=== PATIENT | male | born 1960 | race Caucasian/White ===

== ENCOUNTER 2021-08-10 10:08 | Inpatient (IN) ==
--- NOTE | 2021-08-10 11:14 | Emergency Department Note ---
History of Present Illness General Chief complaint: Arrhythmia/Palpitations Stated complaint: PALPITATIONS,CHEST PRESSURE Time Seen by Provider: 08/10/21 10:45 Source: patient, family (Significant other who is at the bedside), RN notes reviewed and old records reviewed (Attempted but he has no previous visits at our hospital) Mode of arrival: ambulatory Limitations: no limitations History of Present Illness This patient comes in after feeling sick for the last couple days or so. He has multiple symptoms. He says his hearts been racing he feels like he is weak in his legs when he tries to walk he is very dizzy when standing he has either fallen or passed out several times but denies any injuries. He says he feels okay at rest. He has had some chest tightness at times but denies any is present. He says he is very short of breath when he tries to walk is had some dry heaves he is also a little bit of a cough no fever no abdominal pain. No blood or melena stool. Chronic lower extremity edema which is not significantly changed. No dysuria hematuria. No headache neck pain or stiffness. He does take Lasix for lower extremity edema but denies any cardiac history. He does have a significant family history. Home Medications Medication Instructions Recorded Confirmed Type citalopram 20 mg tablet 20 mg PO [facility] 08/10/21 08/10/21 History eszopiclone 2 mg tablet 2 mg PO [facility] 08/10/21 08/10/21 History finasteride 1 mg tablet 1 mg PO [facility] 08/10/21 08/10/21 History furosemide 40 mg tablet 40 mg PO [facility] 08/10/21 08/10/21 History lisinopril 10 mg tablet 10 mg PO [facility] 08/10/21 08/10/21 History lisinopril 10 mg tablet 10 mg PO [facility] 08/10/21 08/10/21 History loratadine 10 mg tablet 10 mg PO [facility] 08/10/21 08/10/21 History meloxicam 15 mg tablet 15 mg PO [facility] 08/10/21 08/10/21 History metoprolol succinate 25 mg 25 mg PO [facility] 08/10/21 08/10/21 History tablet,extended release 24 hr minoxidil 5 % topical solution 1 ml TOPICAL BID PRN 08/10/21 08/10/21 History tadalafil 10 mg tablet 10 mg PO QAM 08/10/21 08/10/21 History tamsulosin 0.4 mg capsule 0.4 mg PO QAM 08/10/21 08/10/21 History Allergies Allergy/AdvReac Type Severity Reaction Status Date / Time No Known Allergies Allergy Unverified 08/10/21 12:25 Past Med/Surg History Social History Smoking Status: Never smoker Feels Safe at Home: Yes Immunizations: Past medical historyhypertension, prostate issues. Denies diabetes or heart disease or pulmonary disease Family historyBrother of an heart problems at age 56, father at 63 Social historyHe does not smoke. He drinks "a lot" Review of Systems A total of 10 systems reviewed and were otherwise negative Physical Exam Vital Signs Vital Signs - 24 hr 08/10/21 10:20 08/10/21 10:58 08/10/21 11:06 Pulse Rate 123 H 115 H Pulse Rate from SpO2 Sensor Pulse Rhythm Regular Pulse Strength Normal Respiratory Rate 30 H 22 Respiratory Effort / Characteristics Non-Labored Spontaneous Non-Labored Spontaneous Respiratory Depth Normal Normal Respiratory Pattern Regular Blood Pressure 140/93 Blood Pressure Mean 108 Blood Pressure Position Sitting Pulse Oximetry 95 Oxygen Delivery Method Room Air Sepsis Recent Fever Within 48 Hours No Sepsis New/Unexplained Change in Mental Status N/A Sepsis Action Taken by Nursing No Action Required 08/10/21 11:10 08/10/21 11:20 08/10/21 11:30 Pulse Rate 119 H 111 H 112 H Pulse Rate from SpO2 Sensor 112 H 112 H Pulse Rhythm Pulse Strength Respiratory Rate 24 22 21 Respiratory Effort / Characteristics Respiratory Depth Respiratory Pattern Blood Pressure 165/83 H Blood Pressure Mean 110 Blood Pressure Position Pulse Oximetry 96 91 Oxygen Delivery Method Sepsis Recent Fever Within 48 Hours Sepsis New/Unexplained Change in Mental Status Sepsis Action Taken by Nursing 08/10/21 11:40 08/10/21 11:50 08/10/21 12:00 Pulse Rate 111 H 114 H 112 H Pulse Rate from SpO2 Sensor 111 H 114 H 111 H Pulse Rhythm Pulse Strength Respiratory Rate 25 H 22 27 H Respiratory Effort / Characteristics Respiratory Depth Respiratory Pattern Blood Pressure Blood Pressure Mean Blood Pressure Position Pulse Oximetry 94 95 95 Oxygen Delivery Method Sepsis Recent Fever Within 48 Hours Sepsis New/Unexplained Change in Mental Status Sepsis Action Taken by Nursing 08/10/21 12:10 08/10/21 12:20 08/10/21 12:30 Pulse Rate 114 H 111 H 110 H Pulse Rate from SpO2 Sensor 114 H 108 H 111 H Pulse Rhythm Pulse Strength Respiratory Rate 22 23 23 Respiratory Effort / Characteristics Respiratory Depth Respiratory Pattern Blood Pressure 172/79 H Blood Pressure Mean 110 Blood Pressure Position Pulse Oximetry 96 96 94 Oxygen Delivery Method Sepsis Recent Fever Within 48 Hours Sepsis New/Unexplained Change in Mental Status Sepsis Action Taken by Nursing 08/10/21 12:40 08/10/21 12:50 08/10/21 13:00 Pulse Rate 112 H 112 H 120 H Pulse Rate from SpO2 Sensor 111 H 109 H Pulse Rhythm Pulse Strength Respiratory Rate 18 23 27 H Respiratory Effort / Characteristics Respiratory Depth Respiratory Pattern Blood Pressure Blood Pressure Mean Blood Pressure Position Pulse Oximetry 93 95 Oxygen Delivery Method Sepsis Recent Fever Within 48 Hours Sepsis New/Unexplained Change in Mental Status Sepsis Action Taken by Nursing 08/10/21 13:10 08/10/21 13:20 08/10/21 13:30 Pulse Rate 115 H 113 H 111 H Pulse Rate from SpO2 Sensor 114 H 113 H 111 H Pulse Rhythm Pulse Strength Respiratory Rate 22 14 18 Respiratory Effort / Characteristics Respiratory Depth Respiratory Pattern Blood Pressure Blood Pressure Mean Blood Pressure Position Pulse Oximetry 96 94 95 Oxygen Delivery Method Sepsis Recent Fever Within 48 Hours Sepsis New/Unexplained Change in Mental Status Sepsis Action Taken by Nursing 08/10/21 13:40 08/10/21 13:50 08/10/21 14:00 Pulse Rate 110 H 109 H 110 H Pulse Rate from SpO2 Sensor 107 H 110 H 111 H Pulse Rhythm Pulse Strength Respiratory Rate 24 21 24 Respiratory Effort / Characteristics Respiratory Depth Respiratory Pattern Blood Pressure 153/63 H Blood Pressure Mean 93 Blood Pressure Position Pulse Oximetry 97 94 95 Oxygen Delivery Method Sepsis Recent Fever Within 48 Hours Sepsis New/Unexplained Change in Mental Status Sepsis Action Taken by Nursing 08/10/21 14:10 08/10/21 14:20 08/10/21 14:30 Pulse Rate 111 H 115 H 112 H Pulse Rate from SpO2 Sensor 111 H 110 H 112 H Pulse Rhythm Pulse Strength Respiratory Rate 17 19 24 Respiratory Effort / Characteristics Respiratory Depth Respiratory Pattern Blood Pressure 152/58 H Blood Pressure Mean 89 Blood Pressure Position Pulse Oximetry 95 97 93 Oxygen Delivery Method Sepsis Recent Fever Within 48 Hours Sepsis New/Unexplained Change in Mental Status Sepsis Action Taken by Nursing 08/10/21 14:40 08/10/21 14:50 08/10/21 15:00 Pulse Rate 110 H 112 H Pulse Rate from SpO2 Sensor 111 H 112 H 107 H Pulse Rhythm Pulse Strength Respiratory Rate 23 25 H Respiratory Effort / Characteristics Respiratory Depth Respiratory Pattern Blood Pressure Blood Pressure Mean Blood Pressure Position Pulse Oximetry 95 93 97 Oxygen Delivery Method Sepsis Recent Fever Within 48 Hours Sepsis New/Unexplained Change in Mental Status Sepsis Action Taken by Nursing 08/10/21 15:10 08/10/21 15:20 08/10/21 15:30 Pulse Rate 113 H 110 H 105 H Pulse Rate from SpO2 Sensor 113 H 111 H 105 H Pulse Rhythm Pulse Strength Respiratory Rate 18 19 20 Respiratory Effort / Characteristics Respiratory Depth Respiratory Pattern Blood Pressure 136/69 Blood Pressure Mean 91 Blood Pressure Position Pulse Oximetry 98 97 97 Oxygen Delivery Method Sepsis Recent Fever Within 48 Hours Sepsis New/Unexplained Change in Mental Status Sepsis Action Taken by Nursing 08/10/21 15:40 08/10/21 15:50 08/10/21 16:00 Pulse Rate 103 H 104 H 103 H Pulse Rate from SpO2 Sensor 103 H 101 H 103 H Pulse Rhythm Pulse Strength Respiratory Rate 23 23 24 Respiratory Effort / Characteristics Respiratory Depth Respiratory Pattern Blood Pressure 150/68 H Blood Pressure Mean 95 Blood Pressure Position Pulse Oximetry 98 97 98 Oxygen Delivery Method Sepsis Recent Fever Within 48 Hours Sepsis New/Unexplained Change in Mental Status Sepsis Action Taken by Nursing 08/10/21 16:10 08/10/21 16:20 08/10/21 16:30 Pulse Rate 101 H 104 H 102 H Pulse Rate from SpO2 Sensor 100 H 104 H 102 H Pulse Rhythm Pulse Strength Respiratory Rate 20 18 20 Respiratory Effort / Characteristics Respiratory Depth Respiratory Pattern Blood Pressure Blood Pressure Mean Blood Pressure Position Pulse Oximetry 98 98 98 Oxygen Delivery Method Sepsis Recent Fever Within 48 Hours Sepsis New/Unexplained Change in Mental Status Sepsis Action Taken by Nursing 08/10/21 16:40 08/10/21 16:50 08/10/21 17:00 Pulse Rate 101 H 102 H 102 H Pulse Rate from SpO2 Sensor 103 H 102 H 102 H Pulse Rhythm Pulse Strength Respiratory Rate 20 25 H 21 Respiratory Effort / Characteristics Respiratory Depth Respiratory Pattern Blood Pressure 155/79 H Blood Pressure Mean 104 Blood Pressure Position Pulse Oximetry 97 97 97 Oxygen Delivery Method Sepsis Recent Fever Within 48 Hours Sepsis New/Unexplained Change in Mental Status Sepsis Action Taken by Nursing General: Well developed well nourished middle-age male who appears in no acute distress, breathing comfortably on room air. Normal speech HEENT: Normal cephalic atraumatic. Pupils are equal round and reactive to light. Extraocular movements are intact. Oropharynx is pink with moist mucous membranes. No swelling of the mouth lips or tongue. Sclera anicteric Neck: Supple with a midline trachea. No meningeal signs or stiffness, no JVD or bruits. No Stridor. Chest: Clear to auscultation bilaterally. No wheezes or rhonchi. No increased work of breathing. Heart: Mildly tachycardic regular rate and rhythm without murmurs or gallops. Abdomen: Soft nontender, nondistended without rebound guarding or rigidity. Extremities: No cyanosis clubbing. bilateral lower extremity.. No calf tenderness or assymetry Spine/Back. Non tender to palpation. No CVA tenderness Skin: Good turgor without rashes. Neurologic exam: Cranial nerves two through 12 are intact. Motor and sensation are intact and symmetrical throughout. Course Administered Medications Discontinued Medications Magnesium Sulfate/Dextrose (Magnesium Sulfate / D5w) 1 gm in 100 mls @ 100 mls/hr IV NOW STA Stop: 08/10/21 13:14 Last Infusion: 08/10/21 14:10 Dose: 0 mls/hr Documented by: [id number] Admin: 08/10/21 13:04 Dose: 100 mls/hr Documented by: [id number] Multivitamins 10 ml/ Thiamine HCl 100 mg/ Folic Acid 1 mg/Sodium Chloride 1,011.2 mls @ 1,011.2 mls/hr IV .Q1H ONE Stop: 08/10/21 13:15 Last Infusion: 08/10/21 15:24 Dose: 0 mls/hr Documented by: [id number] Admin: 08/10/21 13:57 Dose: 1,011.2 mls/hr Documented by: [id number] Lorazepam (Lorazepam 2 Mg/1 Ml Vial) 1 mg IV NOW STA Stop: 08/10/21 12:25 Last Admin: 08/10/21 13:01 Dose: 1 mg Documented by: [id number] Ondansetron HCl (Ondansetron Inj 2 Mg/Ml 2 Ml Vial) Confirm Administered Dose 4 mg .ROUTE .STK-MED ONE Stop: 08/10/21 12:07 Last Admin: 08/10/21 12:08 Dose: 4 mg Documented by: [id number] Potassium Chloride (Potassium Chloride Crtab 20 Meq Tabcr) 40 meq PO NOW STA Stop: 08/10/21 15:41 Last Admin: 08/10/21 16:15 Dose: 40 meq Documented by: [id number] Critical Care Time Critical Care Time: Yes Total Critical Care Time: 30 Due to the patient's tachycardia, multiple symptoms concerning for cardiac disease electrolyte or metabolic abnormalities and other etiologies with a very low sodium, need for IV medications and reassessment and consultations, I have personally spent greater than 30 minutes of critical care time in the direct management of this patient. This includes bedside care, interpretation of diagnostic studies, and testing, discussion with consultants, patient, and family members, and other required patient management activities. This 30 minutes is in excess of all separately billable procedures. Medical Decision Making Differential Diagnosis Acute coronary syndrome, arrhythmia, CHF, electrolyte or metabolic abnormality, alcohol use or withdrawal, sepsis, anemia Medical Records Attestation: I reviewed the patient's medical records. Home Medications Current Medication List: was personally reviewed by me Laboratory Data Attestation: I reviewed the patient's lab results. Result diagrams: 08/10/21 11:15 08/10/21 14:47 Lab Results 08/10/21 08/10/21 08/10/21 Range/Units 11:15 11:15 11:15 WBC 8.24 (4.8-10.8) K/uL RBC 3.90 L (4.7-6.1) M/uL Hgb 13.1 L (14.0-18.0) g/dL Hct 36.9 L (42-52) % MCV 94.6 (80-100) fL MCH 33.6 (25-34) pg MCHC 35.5 (32-36) g/dL RDW Std Deviation 47.2 H (36.4-46.3) fL RDW Coeff of Glenn 13.8 (11.5-14.5) % Plt Count 224 (130-400) K/uL MPV 10.0 (7.4-10.4) fL Immature Gran % (Auto) 0.8 % Neut % (Auto) 69.6 % Lymph % (Auto) 14.1 % [place] % (Auto) 14.9 % Eos % (Auto) 0.4 % Baso % (Auto) 0.2 % Neut # (Auto) 5.73 (1.4-6.5) K/uL Lymph # (Auto) 1.16 L (1.2-3.4) K/uL [place] # (Auto) 1.23 H (0.11-0.59) K/uL Eos # (Auto) 0.03 (0-0.5) K/uL Baso # (Auto) 0.02 (0-0.2) K/uL Immature Gran # (Auto) 0.07 H (0.00-0.02) K/uL PT 10.3 (9.0-12.0) Seconds INR 1.0 (0.9-1.1) APTT 27.3 (21.0-31.0) Seconds PTT Ratio 1.0 Sodium (136-145) mmol/L Potassium (3.5-5.1) mmol/L Chloride (98-107) mmol/L Carbon Dioxide (21-32) mmol/L Anion Gap (3-11) BUN (6-23) mg/dl Creatinine (0.6-1.4) mg/dl Est Cr Clr Drug Dosing ml/min Est GFR ( Amer) ml/min Est GFR (Non-Af Amer) ml/min BUN/Creatinine Ratio (10-20) Glucose (70-99(Fasting)) mg/dl Osmolality (280-300) mOsm/kg Lactate (0.4-2.0) mmol/L Uric Acid (2.6-7.2) mg/dl Calcium (8.5-10.1) mg/dl Phosphorus (2.5-4.9) mg/dl Magnesium (1.7-2.4) mg/dl Total Bilirubin (0.2-1.0) mg/dl AST (13-39) U/L ALT (7-52) U/L Alkaline Phosphatase (34-104) U/L Troponin I High Sens 7.8 (0-20) pg/ml B-Natriuretic Peptide (0-100) pg/ml Total Protein (6.0-8.3) gm/dl Albumin (3.4-5.0) gm/dl Globulin (2.5-4.0) gm/dl Albumin/Globulin Ratio (0.9-2) TSH (0.300-4.500) uIu/ml Urine Osmolality (500-800) mOsm/kg Ur Random Sodium mmol/L Ethyl Alcohol mg/dL (<10.0) mg/dl SARS-CoV-2 (PCR) (Negative) Influenza Type A (PCR) (Neg) Influenza Type B (PCR) (Neg) RSV (RT-PCR) (Neg) 08/10/21 08/10/21 08/10/21 Range/Units 11:15 11:15 11:15 WBC (4.8-10.8) K/uL RBC (4.7-6.1) M/uL Hgb (14.0-18.0) g/dL Hct (42-52) % MCV (80-100) fL MCH (25-34) pg MCHC (32-36) g/dL RDW Std Deviation (36.4-46.3) fL RDW Coeff of Glenn (11.5-14.5) % Plt Count (130-400) K/uL MPV (7.4-10.4) fL Immature Gran % (Auto) % Neut % (Auto) % Lymph % (Auto) % [place] % (Auto) % Eos % (Auto) % Baso % (Auto) % Neut # (Auto) (1.4-6.5) K/uL Lymph # (Auto) (1.2-3.4) K/uL [place] # (Auto) (0.11-0.59) K/uL Eos # (Auto) (0-0.5) K/uL Baso # (Auto) (0-0.2) K/uL Immature Gran # (Auto) (0.00-0.02) K/uL PT (9.0-12.0) Seconds INR (0.9-1.1) APTT (21.0-31.0) Seconds PTT Ratio Sodium 116 L* (136-145) mmol/L Potassium 3.5 (3.5-5.1) mmol/L Chloride 78 L (98-107) mmol/L Carbon Dioxide 27 (21-32) mmol/L Anion Gap 11 (3-11) BUN 4 L (6-23) mg/dl Creatinine 0.62 (0.6-1.4) mg/dl Est Cr Clr Drug Dosing 198.1 ml/min Est GFR ( Amer) 125.8 ml/min Est GFR (Non-Af Amer) 108.6 ml/min BUN/Creatinine Ratio 6.5 L (10-20) Glucose 126 H (70-99(Fasting)) mg/dl Osmolality (280-300) mOsm/kg Lactate 1.2 (0.4-2.0) mmol/L Uric Acid 6.0 (2.6-7.2) mg/dl Calcium 8.8 (8.5-10.1) mg/dl Phosphorus 2.0 L (2.5-4.9) mg/dl Magnesium 1.4 L (1.7-2.4) mg/dl Total Bilirubin 1.0 (0.2-1.0) mg/dl AST 57 H (13-39) U/L ALT 59 H (7-52) U/L Alkaline Phosphatase 124 H (34-104) U/L Troponin I High Sens (0-20) pg/ml B-Natriuretic Peptide (0-100) pg/ml Total Protein 6.3 (6.0-8.3) gm/dl Albumin 3.5 (3.4-5.0) gm/dl Globulin 2.8 (2.5-4.0) gm/dl Albumin/Globulin Ratio 1.3 (0.9-2) TSH (0.300-4.500) uIu/ml Urine Osmolality (500-800) mOsm/kg Ur Random Sodium mmol/L Ethyl Alcohol mg/dL (<10.0) mg/dl SARS-CoV-2 (PCR) (Negative) Influenza Type A (PCR) (Neg) Influenza Type B (PCR) (Neg) RSV (RT-PCR) (Neg) 08/10/21 08/10/21 08/10/21 Range/Units 11:20 11:58 13:00 WBC (4.8-10.8) K/uL RBC (4.7-6.1) M/uL Hgb (14.0-18.0) g/dL Hct (42-52) % MCV (80-100) fL MCH (25-34) pg MCHC (32-36) g/dL RDW Std Deviation (36.4-46.3) fL RDW Coeff of Glenn (11.5-14.5) % Plt Count (130-400) K/uL MPV (7.4-10.4) fL Immature Gran % (Auto) % Neut % (Auto) % Lymph % (Auto) % [place] % (Auto) % Eos % (Auto) % Baso % (Auto) % Neut # (Auto) (1.4-6.5) K/uL Lymph # (Auto) (1.2-3.4) K/uL [place] # (Auto) (0.11-0.59) K/uL Eos # (Auto) (0-0.5) K/uL Baso # (Auto) (0-0.2) K/uL Immature Gran # (Auto) (0.00-0.02) K/uL PT (9.0-12.0) Seconds INR (0.9-1.1) APTT (21.0-31.0) Seconds PTT Ratio Sodium (136-145) mmol/L Potassium (3.5-5.1) mmol/L Chloride (98-107) mmol/L Carbon Dioxide (21-32) mmol/L Anion Gap (3-11) BUN (6-23) mg/dl Creatinine (0.6-1.4) mg/dl Est Cr Clr Drug Dosing ml/min Est GFR ( Amer) ml/min Est GFR (Non-Af Amer) ml/min BUN/Creatinine Ratio (10-20) Glucose (70-99(Fasting)) mg/dl Osmolality (280-300) mOsm/kg Lactate (0.4-2.0) mmol/L Uric Acid (2.6-7.2) mg/dl Calcium (8.5-10.1) mg/dl Phosphorus (2.5-4.9) mg/dl Magnesium (1.7-2.4) mg/dl Total Bilirubin (0.2-1.0) mg/dl AST (13-39) U/L ALT (7-52) U/L Alkaline Phosphatase (34-104) U/L Troponin I High Sens (0-20) pg/ml B-Natriuretic Peptide 51 (0-100) pg/ml Total Protein (6.0-8.3) gm/dl Albumin (3.4-5.0) gm/dl Globulin (2.5-4.0) gm/dl Albumin/Globulin Ratio (0.9-2) TSH (0.300-4.500) uIu/ml Urine Osmolality 164 L (500-800) mOsm/kg Ur Random Sodium mmol/L Ethyl Alcohol mg/dL (<10.0) mg/dl SARS-CoV-2 (PCR) NEGATIVE (Negative) Influenza Type A (PCR) Negative (Neg) Influenza Type B (PCR) Negative (Neg) RSV (RT-PCR) Negative (Neg) 08/10/21 08/10/21 08/10/21 Range/Units 13:00 14:47 14:47 WBC (4.8-10.8) K/uL RBC (4.7-6.1) M/uL Hgb (14.0-18.0) g/dL Hct (42-52) % MCV (80-100) fL MCH (25-34) pg MCHC (32-36) g/dL RDW Std Deviation (36.4-46.3) fL RDW Coeff of Glenn (11.5-14.5) % Plt Count (130-400) K/uL MPV (7.4-10.4) fL Immature Gran % (Auto) % Neut % (Auto) % Lymph % (Auto) % [place] % (Auto) % Eos % (Auto) % Baso % (Auto) % Neut # (Auto) (1.4-6.5) K/uL Lymph # (Auto) (1.2-3.4) K/uL [place] # (Auto) (0.11-0.59) K/uL Eos # (Auto) (0-0.5) K/uL Baso # (Auto) (0-0.2) K/uL Immature Gran # (Auto) (0.00-0.02) K/uL PT (9.0-12.0) Seconds INR (0.9-1.1) APTT (21.0-31.0) Seconds PTT Ratio Sodium (136-145) mmol/L Potassium (3.5-5.1) mmol/L Chloride (98-107) mmol/L Carbon Dioxide (21-32) mmol/L Anion Gap (3-11) BUN (6-23) mg/dl Creatinine (0.6-1.4) mg/dl Est Cr Clr Drug Dosing ml/min Est GFR ( Amer) ml/min Est GFR (Non-Af Amer) ml/min BUN/Creatinine Ratio (10-20) Glucose (70-99(Fasting)) mg/dl Osmolality 241 L (280-300) mOsm/kg Lactate (0.4-2.0) mmol/L Uric Acid (2.6-7.2) mg/dl Calcium (8.5-10.1) mg/dl Phosphorus (2.5-4.9) mg/dl Magnesium (1.7-2.4) mg/dl Total Bilirubin (0.2-1.0) mg/dl AST (13-39) U/L ALT (7-52) U/L Alkaline Phosphatase (34-104) U/L Troponin I High Sens (0-20) pg/ml B-Natriuretic Peptide (0-100) pg/ml Total Protein (6.0-8.3) gm/dl Albumin (3.4-5.0) gm/dl Globulin (2.5-4.0) gm/dl Albumin/Globulin Ratio (0.9-2) TSH 3.541 (0.300-4.500) uIu/ml Urine Osmolality (500-800) mOsm/kg Ur Random Sodium 10 mmol/L Ethyl Alcohol mg/dL (<10.0) mg/dl SARS-CoV-2 (PCR) (Negative) Influenza Type A (PCR) (Neg) Influenza Type B (PCR) (Neg) RSV (RT-PCR) (Neg) 08/10/21 08/10/21 Range/Units 14:47 14:47 WBC (4.8-10.8) K/uL RBC (4.7-6.1) M/uL Hgb (14.0-18.0) g/dL Hct (42-52) % MCV (80-100) fL MCH (25-34) pg MCHC (32-36) g/dL RDW Std Deviation (36.4-46.3) fL RDW Coeff of Glenn (11.5-14.5) % Plt Count (130-400) K/uL MPV (7.4-10.4) fL Immature Gran % (Auto) % Neut % (Auto) % Lymph % (Auto) % [place] % (Auto) % Eos % (Auto) % Baso % (Auto) % Neut # (Auto) (1.4-6.5) K/uL Lymph # (Auto) (1.2-3.4) K/uL [place] # (Auto) (0.11-0.59) K/uL Eos # (Auto) (0-0.5) K/uL Baso # (Auto) (0-0.2) K/uL Immature Gran # (Auto) (0.00-0.02) K/uL PT (9.0-12.0) Seconds INR (0.9-1.1) APTT (21.0-31.0) Seconds PTT Ratio Sodium 117 L* (136-145) mmol/L Potassium 3.2 L (3.5-5.1) mmol/L Chloride 81 L (98-107) mmol/L Carbon Dioxide 28 (21-32) mmol/L Anion Gap 8 (3-11) BUN 4 L (6-23) mg/dl Creatinine 0.58 L (0.6-1.4) mg/dl Est Cr Clr Drug Dosing 211.8 ml/min Est GFR ( Amer) 129.3 ml/min Est GFR (Non-Af Amer) 111.6 ml/min BUN/Creatinine Ratio 6.9 L (10-20) Glucose 119 H (70-99(Fasting)) mg/dl Osmolality (280-300) mOsm/kg Lactate (0.4-2.0) mmol/L Uric Acid (2.6-7.2) mg/dl Calcium 8.2 L (8.5-10.1) mg/dl Phosphorus (2.5-4.9) mg/dl Magnesium (1.7-2.4) mg/dl Total Bilirubin (0.2-1.0) mg/dl AST (13-39) U/L ALT (7-52) U/L Alkaline Phosphatase (34-104) U/L Troponin I High Sens (0-20) pg/ml B-Natriuretic Peptide (0-100) pg/ml Total Protein (6.0-8.3) gm/dl Albumin (3.4-5.0) gm/dl Globulin (2.5-4.0) gm/dl Albumin/Globulin Ratio (0.9-2) TSH (0.300-4.500) uIu/ml Urine Osmolality (500-800) mOsm/kg Ur Random Sodium mmol/L Ethyl Alcohol mg/dL < 10.0 (<10.0) mg/dl SARS-CoV-2 (PCR) (Negative) Influenza Type A (PCR) (Neg) Influenza Type B (PCR) (Neg) RSV (RT-PCR) (Neg) Imaging Data Attestation: I personally reviewed and interpreted this imaging study as follows: My Impression: Chest [id number] with some mild vascular congestion. No pneumothorax or focal infiltrate Radiologist's Impression: Chest X-Ray 08/10/21 10:29 SINGLE VIEW CHEST CLINICAL HISTORY: Atypical chest pain. FINDINGS: 2 AP, portable, upright chest radiographs are obtained. No prior studies are available for comparison at the time of dictation. The examination is degraded by portable technique and apical lordotic positioning. The heart is enlarged. There is pulmonary vascular congestion. Atelectasis is noted at the lung bases. The lungs and pleural spaces are otherwise clear. No pneumothorax is seen. The skeletal structures are osteopenic. The bony thorax is grossly intact. IMPRESSION: Cardiomegaly with pulmonary vascular congestion. ACT 112: Negative or not required by law. Electronically signed by: Az Suh M.D. 08/10/2021 11:25 AM ECG Data Attestation: I personally reviewed and interpreted this ECG as follows: Indication: + chest pain, + SOB/dyspnea and + tachycardia Rate (beats per minute): 119 ECG Intervals/blocks: + Normal QRS, + Normal QT and + Normal ID ECG Reedy: + Normal ECG ST segments: + Normal ST segments ECG Findings: + Poor R wave progression; no PACs or no PVCs Comparison ECG Date: no prior available MDM Narrative This patient comes in as described above. He has been feeling weak and increasing short of breath and having palpitations/tachycardia and chest pain. The differential be broad on him cardiac disease and CHF will be at the top of the list also alcohol use or withdrawal. Anemia and infection as well. In light of this I did an extensive work-up. His initial EKG shows sinus tachycardia but no ischemic changes or ectopy no evidence to suggest A. fib. Chest x-ray was obtained and shows cardiomegaly. Multiple blood testing was obtained. He was placed on a web editor. His troponin is not elevated. His electrolytes came back significantly abnormal with low sodium of 117. This may be from fluid overload or related to his alcohol use his magnesium was also low he was repleted with IV magnesium. I do think he needs to be admitted for f urther treatment evaluation given the low sodium I did put seizure pads on the bed he has no altered mental status I did give him Ativan 1 mg IV to prevent any alcohol withdrawal he has had no shakiness or sensation he is withdrawn so far but will certainly be at risk in the hospital. He will need further work-up for his hyponatremia and I did consult the [facility] hospitalist to see him in ER fo r these measures. Continuous cardiac monitoring: An order was placed in EMR for continuous cardiac monitoring. Nicole interpretation patient noted to be Impression & Plan Hyponatremia, Sinus tachycardia, Hypomagnesemia, CHF (congestive heart failure), Lab test negative for COVID-19 virus, Weakness Discharge Plan Visit Data Chief Complaint: Arrhythmia/Palpitations Stated Complaint: PALPITATIONS,CHEST PRESSURE ED Provider: Kishore Boyd Discharge Problem: Hyponatremia, Sinus tachycardia, Hypomagnesemia, CHF (congestive heart failure), Lab test negative for COVID-19 virus, Weakness Forms Stand Alone Forms: My [facility] Prescriptions Prescriptions: No Action furosemide 40 mg tablet 40 mg PO QAM RF: 0 meloxicam 15 mg tablet 15 mg PO QAM RF: 0 minoxidil 5 % Solution 1 ml TOPICAL BID PRN (Reason: Blood Pressure) RF: 0 citalopram 20 mg tablet 20 mg PO QAM RF: 0 tamsulosin 0.4 mg capsule 0.4 mg PO QAM RF: 0 lisinopril 10 mg tablet 10 mg PO QAM RF: 0 lisinopril 10 mg tablet 10 mg PO QAM RF: 0 metoprolol succinate 25 mg tablet extended release 24 hr 25 mg PO QAM RF: 0 loratadine 10 mg Tablet 10 mg PO QAM RF: 0 finasteride 1 mg Tablet 1 mg PO QAM RF: 0 tadalafil 10 mg Tablet 10 mg PO QAM RF: 0 eszopiclone 2 mg tablet 2 mg PO QAM RF: 0 Referrals Referrals: PCP,NO [Physician] -
[2021-08-10 11:26] LABS: Basophils # (auto) 0.02 K/uL (0-0.2); Basophils % (auto) 0.2 %; Eosinophils # (auto) 0.03 K/uL (0-0.5); Eosinophils % (auto) 0.4 %; Hematocrit (blood only) 36.9 % (42-52); Hemoglobin 13.1 g/dL (14.0-18.0); Immature Granulocytes # (auto) 0.07 K/uL (0.00-0.02); Immature Granulocytes % (auto) 0.8 %; Lymphocytes # (auto) 1.16 K/uL (1.2-3.4); Lymphocytes % (auto) 14.1 %; Mean Corpuscular Hemoglobin 33.6 pg (25-34); Mean Corpuscular Hgb Conc 35.5 g/dL (32-36); Mean Corpuscular Volume 94.6 fL (80-100); Monocytes # (auto) 1.23 K/uL (0.11-0.59); Monocytes % (auto) 14.9 %; Neutrophils # (auto) 5.73 K/uL (1.4-6.5); Neutrophils % (auto) 69.6 %; Platelet Count 224 K/uL (130-400); RDW Coefficient of Variation 13.8 % (11.5-14.5); RDW Standard Deviation 47.2 fL (36.4-46.3); White Blood Count 8.24 K/uL (4.8-10.8)
--- NOTE | 2021-08-10 11:27 | XRay Report ---
SINGLE VIEW CHEST CLINICAL HISTORY: Atypical chest pain. FINDINGS: 2 AP, portable, upright chest radiographs are obtained. No prior studies are available for comparison at the time of dictation. The examination is degraded by portable technique and apical kumar dotic positioning. The heart is enlarged. There is pulmonary vascular congestion. Atelectasis is note d at the lung bases. The lungs and pleural spaces are otherwise clear. No pneumothorax is seen. The s keletal structures are osteopenic. The bony thorax is grossly intact. IMPRESSION: Cardiomegaly with pulmonary vascular congestion. ACT 112: Negative or not required by law. Electronically signed by: Az Suh M.D. 08/10/2021 11:25 AM
[2021-08-10 11:38] LABS: Partial Thromboplastin Time 27.3 Seconds (21.0-31.0); Prothrombin Time 10.3 Seconds (9.0-12.0)
[2021-08-10 12:06] LABS: Albumin Globulin Ratio 1.3 (0.9-2); Albumin Level 3.5 gm/dl (3.4-5.0); BUN Creatinine Ratio 6.5 (10-20); Calcium 8.8 mg/dl (8.5-10.1); Creatinine Clr Calc Pharmacy 198.1 ml/min; Est GFR (African American) 125.8 ml/min; Est GFR (Non-African American) 108.6 ml/min; Globulin 2.8 gm/dl (2.5-4.0); Magnesium 1.4 mg/dl (1.7-2.4); Potassium 3.5 mmol/L (3.5-5.1); Total Protein 6.3 gm/dl (6.0-8.3)
[2021-08-10] MEDS ORDERED: ONDANSETRON INJ 2 MG/ML 2 ML VIAL ONE (12:06)
[2021-08-10 12:14] LABS: Influenza A virus by PCR Negative (Neg); Influenza B virus by PCR Negative (Neg); RSV by PCR Negative (Neg); SARS CoV2 RNA(COVID-19) InHosp NEGATIVE (Negative)
[2021-08-10] MEDS ORDERED: MAGNESIUM SULFATE / D5W 1 GM/100 ML BAG IV STA (12:15)
[2021-08-10] MEDS ORDERED: MULTI-VITAMIN INFUSION 10 ML, THIAMINE HCL 100 MG, FOLIC ACID 1 MG in SODIUM CHLORIDE 0... IV ONE (12:16)
[2021-08-10] MEDS ORDERED: LORazepam 2 MG/1 ML VIAL IV STA (12:24)
--- NOTE | 2021-08-10 12:55 | History & Physical Report ---
Date of Service August 10, 2021 Assessment & Plan (1) Hyponatremia: (2) Alcohol withdrawal: (3) Elevated LFTs: (4) Sinus tachycardia: (5) Essential hypertension: (6) Hypomagnesemia: (7) Hypophosphatemia: (8) Depression: (9) Insomnia: Plan: Hyponatremia- sodium 116. unknown chronicity. no hyperglycemia. Check serum and urine osm, urinary sodium, uric acid. Suspected beer potomania and intravascular hypovolemia although he has some LE edema. Will continue IVF and check BMP frequently for adjustment. CXR with possible vascular congestion but saturating well in room air and not in respiratory distress, BNP normal. Echo pending. - Check Na q4hr to avoid overcorrection. Goal correction of 6-8 in the next 24 hours. - Consult nephrology Alcohol abuse with withdrawal- Heavy drinker for past 3 years, hasn't gone a day without drinking. Last drink 10 pm yesterday. Check alcohol level and UDS. High risk for withdrawal, hence will start on librium taper, ativan prn. AWSS protocol, continue folate, thiamine, multivitamin, banana bag. - He does not plan to quit alcohol, He declines alcohol rehab or assistance. Will continue to children counselor during hospital stay. Elevated LFTs- due to alcohol abuse. Recheck in am. Check US liver to r/o cirrhosis given his drinking. If LFT does not improve, consider hepatitis panel check Sinus tachycardia- EKG with sinus tachycardia. Trop negative. Monitor on tele. Check echo, TSH. continue metoprolol. Hypomagnesemia- repleted, recheck in am Hypophosphatemia- repleted, recheck in am Hypertension- on lisinopril and toprol, will continue Depression- on celexa- will continue Insomnia- hold eszopiclone as he will be on librium taper. Morbid obesity- Weight loss recommended Dispo- PCU with tele DVT prophylaxis- sc lovenox Full code Updated girlfriend at bedside and answered all questions regarding the plan of care. History of Present Illness Chief Complaint: palpitations, weakness, alcohol withdrawal Primary Care Provider: PT DECLINED 61 year old male with heavy alcohol drinker on a daily basis, hypertension, BPH, depression, insomnia, who presented to the ED with multiple complaints- palpitations, generalized weakness, dry heaving over the past couple weeks. States his HR was in 130s yesterday- that really scared him and he came to the ED. States drinks hard drink along with beer every day for the past 3 years. he has not gone a day without drinking, hence has not witnessed any withdrawal complications in the past. States not able to eat much. Last food was about 4 days ago. Having dry heaves, no vomiting. no fever or chills. Has LE edema and has been on lasix for the past month. Legs look about the same. No other swelling elsewhere. Sleep is a problem despite being on eszopiclone. Denies any heart issues- had stress test and echo done a year ago and said to be unremarkable. No h/o CAD or heart attack but family history of heart disease in dad and brother. No h/o lung disease. Does not smoke. He does not plan to quit drinking and declines help. Girlfriend at bedside. Had pill bottles with her and meds were verified. Allergies Allergy/AdvReac Type Severity Reaction Status Date / Time No Known Allergies Allergy Unverified 08/10/21 12:25 Home Medications Medication Instructions Recorded Confirmed Type citalopram 20 mg tablet 20 mg PO [facility] 08/10/21 08/10/21 History eszopiclone 2 mg tablet 2 mg PO [facility] 08/10/21 08/10/21 History finasteride 1 mg tablet 1 mg PO [facility] 08/10/21 08/10/21 History furosemide 40 mg tablet 40 mg PO [facility] 08/10/21 08/10/21 History lisinopril 10 mg tablet 10 mg PO [facility] 08/10/21 08/10/21 History lisinopril 10 mg tablet 10 mg PO [facility] 08/10/21 08/10/21 History loratadine 10 mg tablet 10 mg PO [facility] 08/10/21 08/10/21 History meloxicam 15 mg tablet 15 mg PO [facility] 08/10/21 08/10/21 History metoprolol succinate 25 mg 25 mg PO [facility] 08/10/21 08/10/21 History tablet,extended release 24 hr minoxidil 5 % topical solution 1 ml TOPICAL BID PRN 08/10/21 08/10/21 History tadalafil 10 mg tablet 10 mg PO [facility] 08/10/21 08/10/21 History tamsulosin 0.4 mg capsule 0.4 mg PO QAM 08/10/21 08/10/21 History Past Med/Surg History Social History Smoking Status: Never smoker Feels Safe at Home: Yes Review of Systems Review of Systems: All systems reviewed & are unremarkable except as noted in Subjective Physical Exam Physical Exam: General: Obese male, Lying comfortably in bed, not in acute distress, on room air HEENT: EOMI, ELIER, MMM. No nystagmus Chest: Clear breath sounds bilaterally, no wheezes or crackles CVS: Tachycardia but regular, normal heart sounds, no murmur Abdomen: Soft, non tender, not distended, normal bowel sounds Neuro: Awake, alert, oriented, conversing well, non focal Extremities: B/L LE edema +. Hand tremors + Results & Data Results & Data ([facility]) Vital Signs (Past 12 Hours) Vital Signs Pulse Resp BP Pulse Ox 08/10/21 10:20 123 H 30 H 140/93 95 Laboratory Results Short CBC 08/10/21 Range/Units 11:15 WBC 8.24 (4.8-10.8) K/uL Hgb 13.1 L (14.0-18.0) g/dL Hct 36.9 L (42-52) % Plt Count 224 (130-400) K/uL BMP 08/10/21 11:15 Sodium 116 L* Potassium 3.5 Chloride 78 L Carbon Dioxide 27 BUN 4 L Creatinine 0.62 Glucose 126 H Calcium 8.8 Liver Function 08/10/21 Range/Units 11:15 Total Bilirubin 1.0 (0.2-1.0) mg/dl AST 57 H (13-39) U/L ALT 59 H (7-52) U/L Alkaline Phosphatase 124 H (34-104) U/L Albumin 3.5 (3.4-5.0) gm/dl Diagnostic Findings Chest X-Ray 08/10/21 10:29 SINGLE VIEW CHEST CLINICAL HISTORY: Atypical chest pain. FINDINGS: 2 AP, portable, upright chest radiographs are obtained. No prior studies are available for comparison at the time of dictation. The examination is degraded by portable technique and apical lordotic positioning. The heart is enlarged. There is pulmonary vascular congestion. Atelectasis is noted at the lung bases. The lungs and pleural spaces are otherwise clear. No pneumothorax is seen. The skeletal structures are osteopenic. The bony thorax is grossly intact. IMPRESSION: Cardiomegaly with pulmonary vascular congestion. ACT 112: Negative or not required by law. Electronically signed by: Az Suh M.D. 08/10/2021 11:25 AM
[2021-08-10] MEDS ORDERED: ONDANSETRON INJ 2 MG/ML 2 ML VIAL IV PRN (13:40)
[2021-08-10] MEDS ORDERED: chlordiazePOXIDE ALCOHOL WITHDRAWL 50MG PO STA (13:40)
[2021-08-10] MEDS ORDERED: LORazepam 2 MG/1 ML VIAL IV PRN (13:58)
[2021-08-10] MEDS ORDERED: ATIVAN IV ALCOHOL WITHDRAWL IV PRN (13:58)
[2021-08-10 15:23] LABS: BUN Creatinine Ratio 6.9 (10-20); Calcium 8.2 mg/dl (8.5-10.1); Creatinine Clr Calc Pharmacy 211.8 ml/min; Est GFR (African American) 129.3 ml/min; Est GFR (Non-African American) 111.6 ml/min; Potassium 3.2 mmol/L (3.5-5.1)
[2021-08-10] MEDS ORDERED: POTASSIUM CHLORIDE CRTAB 20 MEQ TABCR PO STA (15:40)
[2021-08-10 19:36] LABS: Amphetamines+Metham, Urine Neg (Neg); Barbiturates, Urine Neg (Neg); Benzodiazepine, Urine Neg (Neg); Cocaine, Urine Neg (Neg); MDMA (Ecstacy), Urine Neg (Neg); Methadone, Urine Neg (Neg); Opiate, Urine Neg (Neg); Phencyclidine, Urine Neg (Neg)
[2021-08-10] MEDS: ENOXAPARIN INJ 40 MG/0.4 ML SYR SQ SCH (19:43)
[2021-08-10] MEDS: FOLIC ACID 1 MG in SYRINGE 9.8 ML IV SCH (19:44)
[2021-08-10] MEDS: THIAMINE HCL 100 MG in SYRINGE 9 ML IV SCH (19:44)
[2021-08-10] MEDS: SODIUM CHLORIDE 0.9% 1000ML 1,000 ML IV SCH (19:44)
[2021-08-10] MEDS: lisinopril 10 MG TAB PO SCH (19:45)
[2021-08-10] MEDS: TAMSULOSIN HCL 0.4 MG CAP PO SCH (19:45)
[2021-08-10] MEDS: chlordiazePOXIDE HCl 25 MG CAP PO SCH (19:46)
[2021-08-10] MEDS: LORATADINE 10 MG TAB PO SCH (19:46)
[2021-08-10] MEDS: POT PHOSPHATE MONOBASIC W/ SOD TAB PO SCH ×3 (19:46→23:42)
[2021-08-10 20:05] LABS: BUN Creatinine Ratio 4.7 (10-20); Calcium 8.7 mg/dl (8.5-10.1); Creatinine Clr Calc Pharmacy 191.7 ml/min; Est GFR (African American) 124.2 ml/min; Est GFR (Non-African American) 107.2 ml/min; Potassium 3.7 mmol/L (3.5-5.1)
[2021-08-10] MEDS: LORazepam 2 MG/1 ML VIAL IV PRN (22:50)
[2021-08-10 23:27] LABS: BUN Creatinine Ratio 5.8 (10-20); Calcium 8.6 mg/dl (8.5-10.1); Creatinine Clr Calc Pharmacy 177.8 ml/min; Est GFR (African American) 120.4 ml/min; Est GFR (Non-African American) 103.9 ml/min; Potassium 3.6 mmol/L (3.5-5.1)
[2021-08-11 02:24] LABS: BUN Creatinine Ratio 4.5 (10-20); Calcium 8.2 mg/dl (8.5-10.1); Creatinine Clr Calc Pharmacy 185.9 ml/min; Est GFR (African American) 122.7 ml/min; Est GFR (Non-African American) 105.8 ml/min; Potassium 3.6 mmol/L (3.5-5.1)
[2021-08-11] MEDS: chlordiazePOXIDE HCl 25 MG CAP PO SCH ×4 (03:05→20:31)
[2021-08-11] MEDS: SODIUM CHLORIDE 0.9% 1000ML 1,000 ML IV SCH (03:06)
[2021-08-11] MEDS: LORazepam 2 MG/1 ML VIAL IV PRN ×4 (04:13→20:31)
[2021-08-11 06:45] LABS: Hematocrit (blood only) 33.5 % (42-52); Hemoglobin 11.6 g/dL (14.0-18.0); Mean Corpuscular Hemoglobin 32.9 pg (25-34); Mean Corpuscular Hgb Conc 34.6 g/dL (32-36); Mean Corpuscular Volume 94.9 fL (80-100); Mean Platelet Volume 9.5 fL (7.4-10.4); Platelet Count 202 K/uL (130-400); RDW Coefficient of Variation 14.1 % (11.5-14.5); RDW Standard Deviation 48.5 fL (36.4-46.3); Red Blood Count 3.53 M/uL (4.7-6.1); White Blood Count 6.88 K/uL (4.8-10.8)
--- NOTE | 2021-08-11 07:01 | Electrocardiogram Report ---
Test Reason : Blood Pressure : / mmHG Vent. Rate : 119 BPM Atrial Rate : 119 BPM P-R Int : 190 ms QRS Dur : 068 ms QT Int : 312 ms P-R-T Axes : 038 -15 016 degrees QTc Int : 438 ms Poor data quality, interpretation may be adversely affected Sinus tachycardia Inferior infarct , age undetermined Possible Anterior infarct , age undetermined Abnormal ECG No previous ECGs available Confirmed by Jamie Cowart ([id number]) on 08/11/2021 7:01:06 AM Referred By: Confirmed By:Jamie Cowart
--- NOTE | 2021-08-11 07:03 | Ultrasound Report ---
US liver HISTORY: 61 years-old Male r/o cirrhosis- heavy drinker, LE edema, abn LFT elevated LFTs COMPARISON: None TECHNIQUE: Multiple real-time sonographic images of the abdominal right upper quadrant were obtained assessing grayscale appearance and color flow FINDINGS: Limited exam secondary to patient body habitus. The pancreas is not diagnostically visualized. The liver is enlarged measuring up to 25 cm in length and demonstrates increased echogenicity with po or through transmission. No hepatic mass or definite marginal nodularity identified. Gallbladder slud ge is noted without shadowing cholelithiasis, wall thickening or pericholecystic fluid. Negative sono graphic Manzano's sign. Normal common bile duct measures 5 mm. The imaged right kidney is unremarkable without hydronephrosis. IMPRESSION: 1. Hepatomegaly with hepatic steatosis. No definite sonographic evidence of cirrhosis. 2. No biliary ductal dilation. 3. Gallbladder sludge without cholelithiasis or sonographic evidence of acute cholecystitis. ACT 112: Negative or not required by law. The above report was generated using voice recognition software. It may contain grammatical, syntax o r spelling errors. Electronically signed by: Dylan Blackburn M.D. 08/11/2021 7:01 AM
[2021-08-11 07:07] LABS: Calcium 8.2 mg/dl (8.5-10.1); Creatinine Clr Calc Pharmacy 181.8 ml/min; Est GFR (African American) 121.9 ml/min; Est GFR (Non-African American) 105.2 ml/min; Potassium 3.5 mmol/L (3.5-5.1)
[2021-08-11 07:08] LABS: Albumin Level 3.1 gm/dl (3.4-5.0); Bilirubin Direct 0.3 mg/dl (0-0.2); Bilirubin,Total 0.8 mg/dl (0.2-1.0); Magnesium 1.6 mg/dl (1.7-2.4); Phosphorus 2.5 mg/dl (2.5-4.9); Total Protein 5.3 gm/dl (6.0-8.3)
[2021-08-11] MEDS: ENOXAPARIN INJ 40 MG/0.4 ML SYR SQ SCH ×2 (07:46→17:37)
[2021-08-11] MEDS: THIAMINE HCL 100 MG in SYRINGE 9 ML IV SCH (08:22)
[2021-08-11] MEDS: POT PHOSPHATE MONOBASIC W/ SOD TAB PO SCH ×4 (08:22→20:31)
[2021-08-11] MEDS: FOLIC ACID 1 MG in SYRINGE 9.8 ML IV SCH (08:22)
[2021-08-11] MEDS: TAMSULOSIN HCL 0.4 MG CAP PO SCH (08:23)
[2021-08-11] MEDS: lisinopril 10 MG TAB PO SCH (08:23)
[2021-08-11] MEDS: LORATADINE 10 MG TAB PO SCH (08:23)
[2021-08-11] MEDS: FUROSEMIDE 40 MG TAB PO SCH (08:24)
[2021-08-11] MEDS: CITALOPRAM 40 MG TAB PO SCH (08:24)
[2021-08-11] MEDS ORDERED: METOPROLOL SUCC 25MG EXT REL TAB PO SCH (09:00)
--- NOTE | 2021-08-11 09:34 | Hospitalist Progress Note ---
Date of Service August 11, 2021 Assessment & Plan (1) Hyponatremia: (2) Alcohol withdrawal: (3) Elevated LFTs: (4) Sinus tachycardia: (5) Essential hypertension: (6) Hypomagnesemia: (7) Hypophosphatemia: (8) Depression: (9) Insomnia: Plan: Hyponatremia- likely beer potomania with some intravascular volume depletion. Labs reviewed. - serum osm 241, urine osm 164, urine sodium 10, TSH 3.5, BNP 54, no hyperglycemia - Na 116->123 over past 20 hrs, getting corrected as per goal. Goal correction 6-8/d. IVF has been discontinued. - Continue [id number] for further adjustment as needed - Nephro eval pending Alcohol abuse with withdrawal - Heavy drinker for past 3 years, hasn't gone a day without drinking. - Last drink 10 pm 08/09. Alcohol level negative, UDS positive for marijuana - High risk for withdrawal and hence on librium taper, ativan prn. - Continue AWSS protocol, continue folate, thiamine, multivitamin, - He does not plan to quit alcohol, He declines alcohol rehab or assistance. Will continue to general counselor during hospital stay. Elevated LFTs- due to alcohol abuse. - Improving. - US liver with hepatic steatosis but no cirrhosis Sinus tachycardia- EKG with sinus tachycardia. Trop negative. Monitor on tele. TSH normal, echo pending. On toprol, will increase dose. Hypomagnesemia- repleted, recheck in am Hypokalemia- resolved with repletion Hypophosphatemia- resolved with repletion Hypertension- on lisinopril and toprol, will continue Depression- on celexa- will continue Insomnia- hold eszopiclone as he is on librium taper. Morbid obesity- Weight loss recommended Dispo- Anticipate 3-4 more days. On librium taper for alcohol withdrawal, Hyponatremia being corrected slowly. DVT prophylaxis- sc lovenox Full code Admission and Anticipated Discharge Date Admission Date: August 10, 2021 Subjective Denies any new issues. He is drowsy but easily arousable. States feeling better. Palpitations improved, dry heaving improved, had some breakfast. No chest pain, fever, chills, nausea, vomiting. Physical Exam Physical Exam: General: Obese male, sleeping comfortably in bed, not in acute distress, on room air HEENT: EOMI, ELIER, MMM. No nystagmus Chest: Clear breath sounds bilaterally, no wheezes or crackles CVS: Tachycardia but regular, normal heart sounds, no murmur Abdomen: Soft, non tender, not distended, normal bowel sounds Neuro: Drowsy but easily arousable, non focal Extremities: B/L LE edema +. Mild hand tremors + Results & Data Results & Data ([facility]) Vital Signs (Past 12 Hours) Vital Signs Temp Pulse Pulse Resp BP Pulse Ox Pulse Ox 08/11/21 08:08 36.8 C 128 H 18 118/67 94 08/11/21 08:00 96 08/11/21 06:11 36.9 C 126 H 25 H 180/89 H 97 08/11/21 03:56 37.6 C H 109 H 18 114/66 95 08/10/21 23:38 36.7 C 111 H 22 138/78 96 08/10/21 23:00 107 H 08/10/21 22:38 36.6 C 135 H 32 H 159/92 H 92 Laboratory Results Short CBC 08/10/21 08/11/21 Range/Units 11:15 06:25 WBC 8.24 6.88 (4.8-10.8) K/uL Hgb 13.1 L 11.6 L (14.0-18.0) g/dL Hct 36.9 L 33.5 L (42-52) % Plt Count 224 202 (130-400) K/uL BMP 08/10/21 08/10/21 08/10/21 11:15 14:47 19:06 Sodium 116 L* 117 L* 118 L* Potassium 3.5 3.2 L 3.7 Chloride 78 L 81 L 81 L Carbon Dioxide 27 28 29 BUN 4 L 4 L 3 L Creatinine 0.62 0.58 L 0.64 Glucose 126 H 119 H 110 H Calcium 8.8 8.2 L 8.7 08/10/21 08/11/21 08/11/21 22:42 01:37 06:25 Sodium 121 L 122 L 123 L Potassium 3.6 3.6 3.5 Chloride 83 L 85 L 89 L Carbon Dioxide 27 30 27 BUN 4 L 3 L 4 L Creatinine 0.69 0.66 0.67 Glucose 109 H 102 H 104 H Calcium 8.6 8.2 L 8.2 L Liver Function 08/10/21 08/11/21 Range/Units 11:15 06:25 Total Bilirubin 1.0 0.8 (0.2-1.0) mg/dl Direct Bilirubin 0.3 H (0-0.2) mg/dl AST 57 H 40 H (13-39) U/L ALT 59 H 48 (7-52) U/L Alkaline Phosphatase 124 H 101 (34-104) U/L Albumin 3.5 3.1 L (3.4-5.0) gm/dl Diagnostic Findings Liver Ultrasound 08/10/21 13:40 US liver HISTORY: 61 years-old Male r/o cirrhosis- heavy drinker, LE edema, abn LFT elevated LFTs COMPARISON: None TECHNIQUE: Multiple real-time sonographic images of the abdominal right upper quadrant were obtained assessing grayscale appearance and color flow FINDINGS: Limited exam secondary to patient body habitus. The pancreas is not diagnostically visualized. The liver is enlarged measuring up to 25 cm in length and demonstrates increased echogenicity with poor through transmission. No hepatic mass or definite marginal nodularity identified. Gallbladder sludge is noted without shadowing cholelithiasis, wall thickening or pericholecystic fluid. Negative sonographic Manzano's sign. Normal common bile duct measures 5 mm. The imaged right kidney is unremarkable without hydronephrosis. IMPRESSION: 1. Hepatomegaly with hepatic steatosis. No definite sonographic evidence of cirrhosis. 2. No biliary ductal dilation. 3. Gallbladder sludge without cholelithiasis or sonographic evidence of acute cholecystitis. ACT 112: Negative or not required by law. The above report was generated using voice recognition software. It may contain grammatical, syntax or spelling errors. Electronically signed by: Dylan Blackburn M.D. 08/11/2021 7:01 AM Medications Administered Current Inpatient Medications Chlordiazepoxide HCl (Chlordiazepoxide Hcl 25 Mg Cap) 50 mg PO Q6H KATHY; Taper Stop: 08/13/21 19:59 Last Admin: 08/11/21 08:29 Dose: 50 mg Documented by: Chlordiazepoxide HCl (Chlordiazepoxide Hcl 10 Mg Cap) 10 mg PO Q12H KATHY Stop: 08/14/21 18:01 Citalopram Hydrobromide (Citalopram 40 Mg Tab) 40 mg PO QAM [facility] Stop: 09/10/21 08:59 Last Admin: 08/11/21 08:24 Dose: 40 mg Documented by: Enoxaparin Sodium (Enoxaparin Inj 40 Mg/0.4 Ml Syr) 40 mg SQ Q12H [facility] Stop: 09/09/21 18:22 Last Admin: 08/11/21 07:46 Dose: Not Given Documented by: Furosemide (Furosemide 40 Mg Tab) 40 mg PO [facility] Stop: 09/10/21 08:59 Last Admin: 08/11/21 08:24 Dose: 40 mg Documented by: Thiamine HCl 100 mg/ Syringe 10 mls @ 2 mls/min IV [facility] Stop: 09/09/21 18:22 Last Admin: 08/11/21 08:22 Dose: 2 mls/min Documented by: Folic Acid 1 mg/ Syringe 10 mls @ 5 mls/min IV [facility] Stop: 09/09/21 18:22 Last Admin: 08/11/21 08:22 Dose: 5 mls/min Documented by: Lisinopril (Lisinopril 10 Mg Tab) 10 mg PO [facility] Stop: 09/09/21 18:22 Last Admin: 08/11/21 08:23 Dose: 10 mg Documented by: Loratadine (Loratadine 10 Mg Tab) 10 mg PO [facility] Stop: 09/09/21 18:22 Last Admin: 08/11/21 08:23 Dose: 10 mg Documented by: Lorazepam (Lorazepam 2 Mg/1 Ml Vial) 1 mg IV UD PRN; Protocol PRN Reason: EtOH Withdrawl AWSS Score 6,7 Stop: 09/09/21 13:57 Last Admin: 08/11/21 04:13 Dose: 1 mg Documented by: Lorazepam (Lorazepam 2 Mg/1 Ml Vial) 2 mg IV UD PRN; Protocol PRN Reason: EtOH Withdrawl AWSS Score 8,9 Stop: 09/09/21 13:57 Last Admin: 08/11/21 06:16 Dose: 2 mg Documented by: Lorazepam (Lorazepam 2 Mg/1 Ml Vial) 3 mg IV ONCE PRN; Protocol PRN Reason: EtOH Withdrawl AWSS Score >=10 Stop: 09/09/21 13:57 Last Admin: 08/11/21 08:19 Dose: 3 mg Documented by: Magnesium Oxide (Magnesium Oxide 400 Mg Tab) 400 mg PO BID [facility] Stop: 09/10/21 08:59 Metoprolol Succinate (Metoprolol Succ 25mg Ext Rel Tab) 25 mg PO QAM [facility] Stop: 09/10/21 08:59 Last Admin: 08/11/21 08:24 Dose: 25 mg Documented by: Miscellaneous (Finasteride: Order Awaiting Action) 1 ea N/A QS [facility] Stop: 09/10/21 00:00 Last Admin: 08/11/21 08:24 Dose: Not Given Documented by: Ondansetron HCl (Ondansetron Inj 2 Mg/Ml 2 Ml Vial) 4 mg IV Q6 PRN PRN Reason: Nausea And Vomiting Stop: 09/09/21 13:39 Potassium Phosphate (Pot Phosphate Monobasic W/ Sod Tab) 2 tab PO QID [facility] Stop: 09/09/21 18:22 Last Admin: 08/11/21 08:22 Dose: 2 tab Documented by: Tamsulosin HCl (Tamsulosin Hcl 0.4 Mg Cap) 0.4 mg PO QAM [facility] Stop: 09/09/21 18:22 Last Admin: 08/11/21 08:23 Dose: 0.4 mg Documented by:
[2021-08-11] MEDS: MAGNESIUM OXIDE 400 MG TAB PO SCH ×2 (09:44→20:31)
[2021-08-11 10:51] LABS: Anion Gap 7 (3-11); BUN Creatinine Ratio 6.3 (10-20); Blood Urea Nitrogen 4 mg/dl (6-23); Calcium 8.1 mg/dl (8.5-10.1); Carbon Dioxide 24 mmol/L (21-32); Chloride 91 mmol/L (98-107); Creatinine Clr Calc Pharmacy 193.4 ml/min; Est GFR (Non-African American) 107.9 ml/min; Glucose 105 mg/dl (70-99(Fasting)); Sodium 122 mmol/L (136-145)
[2021-08-11 14:51] LABS: BUN Creatinine Ratio 5.5 (10-20); Calcium 8.5 mg/dl (8.5-10.1); Creatinine Clr Calc Pharmacy 166.9 ml/min; Est GFR (African American) 117.7 ml/min; Est GFR (Non-African American) 101.5 ml/min; Potassium 3.8 mmol/L (3.5-5.1)
--- NOTE | 2021-08-11 17:44 | Consultation Report ---
NEPHROLOGY CONSULTATION NOTE DATE OF SERVICE: 08/11/2021 REASON FOR CONSULTATION: Hyponatremia. HISTORY OF PRESENT ILLNESS: The patient is a 61-year-old white male who is morbidly obese and has he roger daily drinking for many years. He presented to the hospital yesterday after he noticed his heart rate was very fast with heart rate in the 130s. He drinks a lot of beer as well as hard liquor ever y day for many years. Serum sodium was found to be low as well as multiple electrolyte imbalances, s odium was 116. He also had low phosphorus, low magnesium. Since admission, he has received magnesiu m as well as phosphorus. He received some normal saline and with that, serum sodium has gone up to 1 23 this morning. His kidney function is normal with a creatinine of 0.6. He does have some lower ex tremity edema as well as pulmonary congestion. The patient is a poor historian and was not really ve ry cooperative with history and physical examination. ALLERGIES: None. MEDICATIONS: Home medication list was reviewed and includes citalopram, finasteride, Lasix 40 daily, lisinopril 10 daily, loratadine, meloxicam as needed daily, metoprolol, minoxidil topical, tadalafil , tamsulosin. PAST MEDICAL AND SURGICAL HISTORY: Chronic heavy alcohol drinker, morbid obesity, hypertension, BPH, depression, insomnia, prostatic enlargement, smoking. SOCIAL HISTORY: No smoking. Heavy daily alcohol. He has a girlfriend. Does not plan to quit drink ing. REVIEW OF SYSTEMS: Very hard to obtain as the patient was barely cooperating with the history and ph ysical examination, but as per the H and P, he had weakness, palpitations, fast heartbeat and some dr brooklyn soler for the last few days. PHYSICAL EXAMINATION: GENERAL: Morbidly obese white male. He is lying comfortably in bed. Had his eyes closed for most o f the history and physical examination, he is not in any respiratory distress. He is on room air. VITAL SIGNS: Blood pressure is 118/67, pulse rate 128, respiratory rate 18, temperature 36.8 degrees Celsius, 94% on room air. HEENT: Mucous membrane is moist. NECK: Supple. No jugular venous distention, but it is hard to assess given his short obese neck. CHEST: Bilateral decreased breath sounds, occasional crackles. Poor quality exam. CARDIOVASCULAR: S1 and S2 tachycardic. No murmur. ABDOMEN: Soft, nontender, obese. EXTREMITIES: Show bilateral lower extremity edema 1+. LABORATORY TEST: Blood work on admission showed serum sodium 116, most recent sodium is 123, potassi um is 3.5, chloride 89, BUN 4, creatinine 0.6, calcium 8.2, magnesium 1.6, phosphorus 2.5, albumin 3. 1. Urine osmolality 164. Urine sodium 10. Chest x-ray shows some pulmonary congestion with cardiom egaly. Liver ultrasound showed hepatomegaly with hepatic steatosis. There was no definite evidence of cirrhosis. ASSESSMENT AND PLAN: A 61-year-old male with chronic heavy alcohol use, now admitted with weakness, palpitation and dry heaving. He was found to have hyponatremia, for which I have been consulted. Hyponatremia: This appears to be secondary to heavy chronic alcohol use without enough nutritious fo od. The urine osmolality, urine sodium, the clinical setting all fits with a diagnosis of beer potom javier. This is essentially massive intake of liquid predominantly in the form of alcohol and not enou gh electrolyte intake causing the current situation. Sodium has improved in an appropriate way and i s now at 123. I do not believe we have to do any further workup for the etiology of hyponatremia. I will do a fluid restriction at 2000 mL per day. I expect the serum sodium to gradually get better. Do not give him more normal saline. It is reasonable to continue his oral Lasix daily as he was [facility] as an outpatient. At this point, I will do BMP twice daily. It is quite possible that most of hi s symptoms are related with severe hyponatremia. We can also give another round of IV magnesium toda y. It is not unexpected to have low magnesium in chronic heavy alcoholics. No further workup needed for that. Job ID: [id number]
[2021-08-11 18:51] LABS: Calcium 8.3 mg/dl (8.5-10.1); Creatinine Clr Calc Pharmacy 146.8 ml/min; Est GFR (African American) 111.6 ml/min; Est GFR (Non-African American) 96.3 ml/min; Potassium 3.6 mmol/L (3.5-5.1)
[2021-08-11] MEDS: METOPROLOL SUCC 25MG EXT REL TAB PO SCH (20:31)
[2021-08-11 22:15] LABS: BUN Creatinine Ratio 7.8 (10-20); Calcium 8.7 mg/dl (8.5-10.1); Creatinine Clr Calc Pharmacy 158.2 ml/min; Est GFR (African American) 115.1 ml/min; Est GFR (Non-African American) 99.3 ml/min
[2021-08-12 03:04] LABS: BUN Creatinine Ratio 8.1 (10-20); Calcium 8.5 mg/dl (8.5-10.1); Creatinine Clr Calc Pharmacy 164.6 ml/min; Potassium 3.6 mmol/L (3.5-5.1)
[2021-08-12] MEDS: chlordiazePOXIDE HCl 25 MG CAP PO SCH ×3 (04:23→21:19)
[2021-08-12] MEDS: LORazepam 2 MG/1 ML VIAL IV PRN (04:32)
[2021-08-12] MEDS: ENOXAPARIN INJ 40 MG/0.4 ML SYR SQ SCH ×2 (05:53→17:02)
[2021-08-12 07:32] LABS: BUN Creatinine Ratio 8.3 (10-20); Calcium 8.5 mg/dl (8.5-10.1); Creatinine Clr Calc Pharmacy 169.2 ml/min; Est GFR (African American) 118.3 ml/min; Est GFR (Non-African American) 102.1 ml/min; Magnesium 1.8 mg/dl (1.7-2.4); Phosphorus 4.6 mg/dl (2.5-4.9); Potassium 3.5 mmol/L (3.5-5.1)
[2021-08-12] MEDS: LORATADINE 10 MG TAB PO SCH (08:49)
[2021-08-12] MEDS: THIAMINE HCL 100 MG TAB PO SCH (08:49)
[2021-08-12] MEDS: CITALOPRAM 40 MG TAB PO SCH (08:49)
[2021-08-12] MEDS: FOLIC ACID 1 MG TAB PO SCH (08:49)
[2021-08-12] MEDS: TAMSULOSIN HCL 0.4 MG CAP PO SCH (08:49)
[2021-08-12] MEDS: lisinopril 10 MG TAB PO SCH (08:49)
[2021-08-12] MEDS: METOPROLOL SUCC 25MG EXT REL TAB PO SCH ×2 (08:50→21:19)
[2021-08-12] MEDS: FUROSEMIDE 40 MG TAB PO SCH (08:50)
--- NOTE | 2021-08-12 09:22 | Nephrology Progress Note ---
Date of Service August 12, 2021 Assessment & Plan Admission and Anticipated Discharge Date Admission Date: August 10, 2021 Subjective S--no new issues. Lytes are better. PHYSICAL EXAMINATION: GENERAL: Morbidly obese white male. He is lying comfortably in bed. Had his eyes closed for most of the history and physical examination, he is not in any respiratory distress. He is on room air. VITAL SIGNS: Blood pressure is 118/67, pulse rate 128, respiratory rate 18, temperature 36.8 degrees Celsius, 94% on room air. HEENT: Mucous membrane is moist. NECK: Supple. No jugular venous distention, but it is hard to assess given his short obese neck. CHEST: Bilateral decreased breath sounds, occasional crackles. Poor quality exam. CARDIOVASCULAR: S1 and S2 tachycardic. No murmur. ABDOMEN: Soft, nontender, obese. EXTREMITIES: Show bilateral lower extremity edema 1+. LABORATORY TEST: Blood work on admission showed serum sodium 116, most recent sodium is 132 ASSESSMENT AND PLAN: A 61-year-old male with chronic heavy alcohol use, now admitted with weakness, palpitation and dry heaving. He was found to have hyponatremia, for which I have been consulted. Hyponatremia: This appears to be secondary to heavy chronic alcohol use without enough nutritious food. The urine osmolality, urine sodium, the clinical setting all fits with a diagnosis of beer potomania. This is essentially massive intake of liquid predominantly in the form of alcohol and not enough electrolyte intake causing the current situation. Rec: Continue same 2000 ml fluid limit. All lytes are fine today. He has no desire to stop alcohol so no definite solution for the problem. No meds needed for Low Na+. Will sign off. Results & Data ([facility]) Vital Signs (Past 12 Hours) Vital Signs Temp Pulse Pulse Resp BP Pulse Ox 08/12/21 08:27 36.5 C 100 H 18 158/76 H 95 08/12/21 07:52 93 H 08/12/21 04:24 37.2 C 101 H 22 150/70 H 96
--- NOTE | 2021-08-12 10:43 | Hospitalist Progress Note ---
Date of Service August 12, 2021 Assessment & Plan (1) Hyponatremia: (2) Alcohol withdrawal: (3) Elevated LFTs: (4) Sinus tachycardia: (5) Essential hypertension: (6) Hypomagnesemia: (7) Hypophosphatemia: (8) Depression: (9) Insomnia: Plan: Hyponatremia- likely beer potomania with decreased solute intake and some intravascular volume depletion. Labs reviewed. - serum osm 241, urine osm 164, urine sodium 10, TSH 3.5, BNP 54, no hyperglycemia - Na 116 on presentation, now improved to 131. At goal correction. - Seen by nephro - Continue BMP q12 hrs for now to monitor and prevent overcorrection Alcohol abuse with withdrawal - Heavy drinker for past 3 years, hasn't gone a day without drinking. - Last drink 10 pm 08/09. Alcohol level negative, UDS positive for marijuana - High risk for withdrawal and hence on librium taper, ativan prn. - Continue AWSS protocol, continue folate, thiamine, multivitamin, - He does not plan to quit alcohol, He declines alcohol rehab or assistance. Recommended to cut down significantly Elevated LFTs- due to alcohol abuse. - Improving. - US liver with hepatic steatosis but no cirrhosis. Discussed that he needs to significantly cut down his alcohol abuse, otherwise he might end up with cirrhosis. Sinus tachycardia- improved, EKG with sinus tachycardia. Trop negative. Monitor on tele. TSH normal, echo reviewed. On toprol- dose increased to bid Hypomagnesemia- resolved with repletion Hypokalemia- resolved with repletion Hypophosphatemia- resolved with repletion Hypertension- on lisinopril and toprol, will continue Depression- on celexa- will continue Insomnia- hold eszopiclone as he is on librium taper. Morbid obesity- Weight loss recommended Dispo- Anticipate 2-3 more days. On librium taper for alcohol withdrawal, Hyponatremia being corrected slowly. DVT prophylaxis- sc lovenox Full code Admission and Anticipated Discharge Date Admission Date: August 10, 2021 Subjective He feels better today. No more shaking or withdrawal symptoms. He was complaining about frequent lab draws. He does not plan to quit alcohol and declines any help. Physical Exam Physical Exam: General: Obese male, lying comfortably in bed, not in acute distress, on room air HEENT: EOMI, ELIER, MMM. No nystagmus Chest: Fair breath sounds bilaterally, no wheezes or crackles CVS: Tachycardia but regular, normal heart sounds, no murmur Abdomen: Soft, non tender, not distended, normal bowel sounds Neuro: AAO, conversing well, non focal Extremities: LE edema improved Results & Data Results & Data ([facility]) Vital Signs (Past 12 Hours) Vital Signs Temp Pulse Pulse Resp BP Pulse Ox Pulse Ox 08/12/21 08:27 36.5 C 100 H 18 158/76 H 95 08/12/21 08:00 97 08/12/21 07:52 93 H 08/12/21 04:24 37.2 C 101 H 22 150/70 H 96 Laboratory Results Short CBC 08/10/21 08/10/21 08/10/21 Range/Units 11:15 14:47 19:06 Sodium 116 L* 117 L* 118 L* (136-145) mmol/L 08/10/21 08/11/21 08/11/21 Range/Units 22:42 01:37 06:25 Sodium 121 L 122 L 123 L (136-145) mmol/L 08/11/21 08/11/21 08/11/21 Range/Units 09:56 14:08 18:11 Sodium 122 L 125 L 127 L (136-145) mmol/L 08/11/21 08/12/21 08/12/21 Range/Units 21:26 02:11 05:39 Sodium 128 L 130 L 131 L (136-145) mmol/L BMP 08/11/21 08/11/21 08/11/21 09:56 11:01 14:08 Sodium 122 L 125 L Potassium TNP 3.6 3.8 Chloride 91 L 90 L Carbon Dioxide 24 29 BUN 4 L 4 L Creatinine 0.63 0.73 Glucose 105 H 101 H Calcium 8.1 L 8.5 08/11/21 08/11/21 08/11/21 18:11 21:26 22:35 Sodium 127 L 128 L Potassium 3.6 3.3 L Chloride 91 L 92 L Carbon Dioxide 29 31 BUN 5 L 6 Creatinine 0.83 0.77 Glucose 102 H 97 Calcium 8.3 L 8.7 08/12/21 08/12/21 02:11 05:39 Sodium 130 L 131 L Potassium 3.6 3.5 Chloride 94 L 95 L Carbon Dioxide 30 30 BUN 6 6 Creatinine 0.74 0.72 Glucose 92 85 Calcium 8.5 8.5 Medications Administered Current Inpatient Medications Chlordiazepoxide HCl (Chlordiazepoxide Hcl 25 Mg Cap) 50 mg PO Q8H [facility]; Taper Stop: 08/13/21 19:59 Last Admin: 08/12/21 04:23 Dose: 50 mg Documented by: Chlordiazepoxide HCl (Chlordiazepoxide Hcl 10 Mg Cap) 10 mg PO Q12H [facility] Stop: 08/14/21 18:01 Citalopram Hydrobromide (Citalopram 40 Mg Tab) 40 mg PO [facility] Stop: 09/10/21 08:59 Last Admin: 08/12/21 08:49 Dose: 40 mg Documented by: Enoxaparin Sodium (Enoxaparin Inj 40 Mg/0.4 Ml Syr) 40 mg SQ Q12H [facility] Stop: 09/09/21 18:22 Last Admin: 08/12/21 05:53 Dose: 40 mg Documented by: Folic Acid (Folic Acid 1 Mg Tab) 1 mg PO [facility] Stop: 09/11/21 08:59 Last Admin: 08/12/21 08:49 Dose: 1 mg Documented by: Furosemide (Furosemide 40 Mg Tab) 40 mg PO [facility] Stop: 09/10/21 08:59 Last Admin: 08/12/21 08:50 Dose: Not Given Documented by: Lisinopril (Lisinopril 10 Mg Tab) 10 mg PO [facility] Stop: 09/09/21 18:22 Last Admin: 08/12/21 08:49 Dose: 10 mg Documented by: Loratadine (Loratadine 10 Mg Tab) 10 mg PO [facility] Stop: 09/09/21 18:22 Last Admin: 08/12/21 08:49 Dose: 10 mg Documented by: Lorazepam (Lorazepam 2 Mg/1 Ml Vial) 1 mg IV UD PRN; Protocol PRN Reason: EtOH Withdrawl AWSS Score 6,7 Stop: 09/09/21 13:57 Last Admin: 08/12/21 04:32 Dose: 1 mg Documented by: Lorazepam (Lorazepam 2 Mg/1 Ml Vial) 2 mg IV UD PRN; Protocol PRN Reason: EtOH Withdrawl AWSS Score 8,9 Stop: 09/09/21 13:57 Last Admin: 08/11/21 18:34 Dose: 2 mg Documented by: Lorazepam (Lorazepam 2 Mg/1 Ml Vial) 3 mg IV ONCE PRN; Protocol PRN Reason: EtOH Withdrawl AWSS Score >=10 Stop: 09/09/21 13:57 Last Admin: 08/11/21 08:19 Dose: 3 mg Documented by: Metoprolol Succinate (Metoprolol Succ 25mg Ext Rel Tab) 25 mg PO BID [facility] Stop: 09/10/21 20:59 Last Admin: 08/12/21 08:50 Dose: 25 mg Documented by: Miscellaneous (Finasteride: Order Awaiting Action) 1 ea N/A QS [facility] Stop: 09/10/21 00:00 Last Admin: 08/12/21 08:49 Dose: Not Given Documented by: Ondansetron HCl (Ondansetron Inj 2 Mg/Ml 2 Ml Vial) 4 mg IV Q6 PRN PRN Reason: Nausea And Vomiting Stop: 09/09/21 13:39 Tamsulosin HCl (Tamsulosin Hcl 0.4 Mg Cap) 0.4 mg PO [facility] Stop: 09/09/21 18:22 Last Admin: 08/12/21 08:49 Dose: 0.4 mg Documented by: Thiamine HCl (Thiamine Hcl 100 Mg Tab) 100 mg PO [facility] Stop: 09/11/21 08:59 Last Admin: 08/12/21 08:49 Dose: 100 mg Documented by:
[2021-08-12 20:40] LABS: BUN Creatinine Ratio 13.2 (10-20); Calcium 8.5 mg/dl (8.5-10.1); Creatinine Clr Calc Pharmacy 179.2 ml/min; Est GFR (African American) 121.2 ml/min; Est GFR (Non-African American) 104.5 ml/min; Potassium 3.5 mmol/L (3.5-5.1)
[2021-08-13] MEDS: chlordiazePOXIDE HCl 25 MG CAP PO SCH ×2 (03:05→11:40)
[2021-08-13] MEDS: ENOXAPARIN INJ 40 MG/0.4 ML SYR SQ SCH ×2 (06:00→17:21)
[2021-08-13 06:58] LABS: BUN Creatinine Ratio 12.5 (10-20); Calcium 8.7 mg/dl (8.5-10.1); Creatinine Clr Calc Pharmacy 169.2 ml/min; Est GFR (African American) 118.3 ml/min; Est GFR (Non-African American) 102.1 ml/min; Magnesium 1.7 mg/dl (1.7-2.4); Potassium 3.4 mmol/L (3.5-5.1)
[2021-08-13] MEDS ORDERED: POTASSIUM CHLORIDE CRTAB 20 MEQ TABCR PO STA (07:46)
[2021-08-13] MEDS: CITALOPRAM 40 MG TAB PO SCH (08:11)
[2021-08-13] MEDS: lisinopril 10 MG TAB PO SCH (08:12)
[2021-08-13] MEDS: FUROSEMIDE 40 MG TAB PO SCH (08:12)
[2021-08-13] MEDS: THIAMINE HCL 100 MG TAB PO SCH (08:12)
[2021-08-13] MEDS: METOPROLOL SUCC 25MG EXT REL TAB PO SCH ×2 (08:13→21:01)
[2021-08-13] MEDS: TAMSULOSIN HCL 0.4 MG CAP PO SCH (08:13)
[2021-08-13] MEDS: LORATADINE 10 MG TAB PO SCH (08:13)
[2021-08-13] MEDS: FOLIC ACID 1 MG TAB PO SCH (08:13)
--- NOTE | 2021-08-13 09:00 | Hospitalist Progress Note ---
Date of Service August 13, 2021 Assessment & Plan (1) Hyponatremia: (2) Alcohol withdrawal: (3) Elevated LFTs: (4) Sinus tachycardia: (5) Essential hypertension: (6) Hypomagnesemia: (7) Hypophosphatemia: (8) Depression: (9) Insomnia: Plan: Hyponatremia- Most likely beer potomania His serum osm 241, urine osm 164, urine sodium 10, TSH 3.5, BNP 54, no hyperglycemia Na 116 on presentation, now improved to 132. Nephro on board currently BMP q12 hrs for now Alcohol abuse with withdrawal Seems Heavy drinker for past 3 years, hasn't gone a day without drinking. UDS positive for marijuana on librium taper, ativan prn. On folate, thiamine, multivitamin, seems declingimg rehab Elevated LFTs- due to alcohol abuse. US liver with hepatic steatosis but no cirrhosis. recommend alcohol cessation Sinus tachycardia- TSH normal, echo reviewed. On toprol- dose increased to bid Alcohol withdrawal contributing Hypomagnesemia, Hypokalemia, Hypophosphatemia- resolved with repletion Hypertension- on lisinopril and toprol, Will monitor Depression- on celexa- Insomnia- holding eszopiclone as he is on librium taper. Morbid obesity- Needs counselling Dispo- Anticipate 2-3 more days. On librium taper for alcohol withdrawal, PT/OT. DVT prophylaxis- sc lovenox Full code Admission and Anticipated Discharge Date Admission Date: August 10, 2021 Subjective Eating breakfast resting comfortably having back pain and not ambulating much afebrile no chest pain or sob no cough Review of Systems Review of Systems: All systems reviewed & are unremarkable except as noted in Subjective Physical Exam Respiratory: normal respiratory effort, lungs clear to auscultation Cardiovascular: RRR, no murmur, no edema Gastrointestinal (Abdomen): normal bowel sounds, soft, nontender, no hepatosplenomegaly Neurologic: PERRL, EOMI, accommodation nl, no face palsy, no dysarthria Psychiatric: A+Ox3, euthymic affect Results & Data Results & Data ([facility]) Vital Signs (Past 12 Hours) Vital Signs Temp Pulse Resp BP Pulse Ox 08/13/21 07:10 36.4 C L 116 H 16 131/100 95 08/13/21 07:08 36.8 C 88 18 155/89 H 95 08/13/21 04:04 36.8 C 94 H 18 151/92 H 97 08/12/21 23:00 36.7 C 97 H 20 153/96 H 95
[2021-08-13 10:56] LABS: Marijuana Quant, GCMS Urine 21 ng/mL (<5)
[2021-08-13] MEDS: LORazepam 2 MG/1 ML VIAL IV PRN (14:17)
[2021-08-14] MEDS ORDERED: LOPERAMIDE HCL 2 MG CAP PO PRN (00:52)
[2021-08-14] MEDS: ENOXAPARIN INJ 40 MG/0.4 ML SYR SQ SCH (06:40)
[2021-08-14 07:43] LABS: Basophils # (auto) 0.04 K/uL (0-0.2); Basophils % (auto) 0.7 %; Eosinophils # (auto) 0.42 K/uL (0-0.5); Eosinophils % (auto) 7.6 %; Immature Granulocytes # (auto) 0.21 K/uL (0.00-0.02); Immature Granulocytes % (auto) 3.8 %; Lymphocytes # (auto) 1.49 K/uL (1.2-3.4); Lymphocytes % (auto) 27.1 %; Mean Corpuscular Hemoglobin 32.9 pg (25-34); Mean Corpuscular Hgb Conc 33.3 g/dL (32-36); Mean Corpuscular Volume 98.6 fL (80-100); Mean Platelet Volume 9.1 fL (7.4-10.4); Monocytes # (auto) 1.14 K/uL (0.11-0.59); Monocytes % (auto) 20.7 %; Neutrophils % (auto) 40.1 %; Platelet Count 219 K/uL (130-400); RDW Coefficient of Variation 14.5 % (11.5-14.5); Red Blood Count 3.65 M/uL (4.7-6.1)
[2021-08-14 08:04] LABS: BUN Creatinine Ratio 13.2 (10-20); Calcium 8.6 mg/dl (8.5-10.1); Creatinine Clr Calc Pharmacy 178.4 ml/min; Est GFR (African American) 121.2 ml/min; Est GFR (Non-African American) 104.5 ml/min; Magnesium 1.7 mg/dl (1.7-2.4); Potassium 3.6 mmol/L (3.5-5.1)
[2021-08-14] MEDS: CITALOPRAM 40 MG TAB PO SCH (08:04)
[2021-08-14] MEDS: FOLIC ACID 1 MG TAB PO SCH (08:04)
[2021-08-14] MEDS: METOPROLOL SUCC 25MG EXT REL TAB PO SCH (08:04)
[2021-08-14] MEDS: FUROSEMIDE 40 MG TAB PO SCH (08:04)
[2021-08-14] MEDS: lisinopril 10 MG TAB PO SCH (08:04)
[2021-08-14] MEDS: TAMSULOSIN HCL 0.4 MG CAP PO SCH (08:04)
[2021-08-14] MEDS: THIAMINE HCL 100 MG TAB PO SCH (08:04)
[2021-08-14] MEDS: LORATADINE 10 MG TAB PO SCH (08:05)
--- NOTE | 2021-08-14 10:23 | Hospitalist Progress Note ---
Date of Service August 14, 2021 Assessment & Plan (1) Hyponatremia: (2) Alcohol withdrawal: (3) Elevated LFTs: (4) Sinus tachycardia: (5) Essential hypertension: (6) Hypomagnesemia: (7) Hypophosphatemia: (8) Depression: (9) Insomnia: Plan: Hyponatremia- Most likely beer potomania His serum osm 241, urine osm 164, urine sodium 10, TSH 3.5, BNP 54, no hyperglycemia Na 116 on presentation, now improved to 131. Staying above 130 Nephro on board needs close followup with PCP Alcohol abuse with withdrawal Seems Heavy drinker for past 3 years, hasn't gone a day without drinking. UDS positive for marijuana on librium taper, ativan prn. On folate, thiamine, multivitamin, doing ok wants to go home Elevated LFTs- due to alcohol abuse. US liver with hepatic steatosis but no cirrhosis. recommend alcohol cessation Sinus tachycardia- TSH normal, echo reviewed. On toprol- dose increased to bid Alcohol withdrawal contributing seems stable Hypomagnesemia, Hypokalemia, Hypophosphatemia- resolved with repletion Hypertension- on lisinopril and toprol, Will monitor Depression- on celexa- Insomnia- holding eszopiclone as he is on librium taper. Morbid obesity- Needs counselling Dispo- anticipate discharge if does with PT PT/OT. DVT prophylaxis- sc lovenox Full code Admission and Anticipated Discharge Date Admission Date: August 10, 2021 Subjective Resting comfortably upset he is not discharged denies any chest pain or sob no nausea afebrile ambulated only in room Review of Systems Review of Systems: All systems reviewed & are unremarkable except as noted in Subjective Physical Exam Constitutional: WD/WN, vitals as above Neck: trachea midline, no thyromegaly Respiratory: normal respiratory effort, lungs clear to auscultation Cardiovascular: RRR, no murmur, no edema Gastrointestinal (Abdomen): normal bowel sounds, soft, nontender, no hepat osplenomegaly Musculoskeletal: Extremities: extremities normal to inspection Neurologic: Alert and oriented no fcaial palsy speech clear moves extremities Psychiatric: A+Ox3, euthymic affect Results & Data Results & Data ([facility]) Vital Signs (Past 12 Hours) Vital Signs Temp Pulse Pulse Resp BP Pulse Ox 05/05/22 03:37 36.8 C 84 16 153/90 H 95 08/13/21 23:20 36.9 C 84 18 166/93 H 97 08/13/21 23:00 86
--- NOTE | 2021-08-14 18:16 | Discharge Summary ---
Date of Service August 14, 2021 Admission HPI Per Admitting Provider 61 year old male with heavy alcohol drinker on a daily basis, hypertension, BPH, depression, insomnia, who presented to the ED with multiple complaints- palpitations, generalized weakness, dry heaving over the past couple weeks. States his HR was in 130s yesterday- that really scared him and he came to the ED. States drinks hard drink along with beer every day for the past 3 years. he has not gone a day without drinking, hence has not witnessed any withdrawal complications in the past. States not able to eat much. Last food was about 4 days ago. Having dry heaves, no vomiting. no fever or chills. Has LE edema and h as been on lasix for the past month. Legs look about the same. No other swelling elsewhere. Sleep is a problem despite being on eszopiclone. Denies any heart issues- had stress test and echo done a year ago and said to be unremarkable. No h/o CAD or heart attack but family history of heart disease in dad and brother. No h/o lung disease. Does not smoke. He does not plan to quit drinking and declines help. Girlfriend at bedside. Had pill bottles with her and meds were verified. Admission Exam (Per Admitting) Eyes General: Obese male, Lying comfortably in bed, not in acute distress, on room air HEENT: EOMI, ELIER, MMM. No nystagmus Chest: Clear breath sounds bilaterally, no wheezes or crackles CVS: Tachycardia but regular, normal heart sounds, no murmur Abdomen: Soft, non tender, not distended, normal bowel sounds Neuro: Awake, alert, oriented, conversing well, non focal Extremities: B/L LE edema +. Hand tremors + Discharge Data Consultations 08/10/21 12:33 ED Decision to Admit Stat 08/10/21 12:57 Consult Nephrology Routine Procedures Performed LIVER US: 1. Hepatomegaly with hepatic steatosis. No definite sonographic evidence of cirrhosis. 2. No biliary ductal dilation. 3. Gallbladder sludge without cholelithiasis or sonographic evidence of acute cholecystitis. Hospital Course (1) Hyponatremia: (2) Alcohol withdrawal: (3) Elevated LFTs: (4) Sinus tachycardia: (5) Essential hypertension: (6) Hypomagnesemia: (7) Hypophosphatemia: (8) Depression: (9) Insomnia: Hyponatremia- Most likely beer potomania His serum osm 241, urine osm 164, urine sodium 10, TSH 3.5, BNP 54, no hyperglycemia Na 116 on presentation, now improved to 131. Staying above 130 Nephro on board needs close followup with PCP Alcohol abuse with withdrawal Seems Heavy drinker for past 3 years, hasn't gone a day without drinking. UDS positive for marijuana on librium taper, ativan prn. On folate, thiamine, multivitamin, doing ok wants to go home Elevated LFTs- due to alcohol abuse. US liver with hepatic steatosis but no cirrhosis. recommend alcohol cessation Sinus tachycardia- TSH normal, echo reviewed. On toprol- dose increased to bid Alcohol withdrawal contributing seems stable Hypomagnesemia, Hypokalemia, Hypophosphatemia- resolved with repletion Hypertension- on lisinopril and toprol, Will monitor Depression- on celexa- Insomnia- holding eszopiclone as he is on librium taper. Morbid obesity- Needs counselling WANTS TO GO HOME. DOES NOT WANT TO GO TOANY REHAB. UPSET HE IS NOT GETTING DISCHARGED. DISCHARGED TO FOLLOWUP WITH PCP FOLLOWUP LAB BMP WITH PCP.
== END 2021-08-14 18:04 | disposition home or self-care (01) | DRG 641 ==
LOC: ED 10:08 → SUATTDRO 13:40 → 2E 13:40
DX: N40.0 Benign prostatic hyperplasia without lower urinary tract symptoms; G47.00 Insomnia, unspecified; E66.01 Morbid (severe) obesity due to excess calories; I10 Essential (primary) hypertension; K76.0 Fatty (change of) liver, not elsewhere classified; E87.1 Hypo-osmolality and hyponatremia; E87.6 Hypokalemia; E83.42 Hypomagnesemia; F10.239 Alcohol dependence with withdrawal, unspecified; E83.39 Other disorders of phosphorus metabolism; Z68.42 Body mass index [BMI] 45.0-49.9, adult; F32.A Depression, unspecified